=== PATIENT | female | born 1950 | race Caucasian/White ===

== ENCOUNTER → 2018-04-20 | Outpatient (CLI) | payer OTHER ==
[~2018-04-20] MED LIST: AMOX-559 PO; CETI5TAB22 PO; FA/M1TAB27 PO; FLUT16SP20 NS; HYDR-2966 PO; LISI20TA29 PO; NORE-5 PO; OLO2ODPT OP; [UNRECOGNIZED DRUG - CODE] PO
--- NOTE | 2018-04-21 11:48 | RADIOLOGY IMAGING REPORT ---
FACILITY: [facility] PATIENT NAME: LEN CAMPBELL : [id number] MR: [id number] V: [id number] EXAM DATE: [id number] ORDERING PHYSICIAN: NGUYEN AMBROSE TECHNOLOGIST: Kristine Brown PROCEDURE:BILATERAL DIGITAL SCREENING MAMMOGRAM WITH CAD ASSISTED INTERPRETATION & 3D TOMOSYNTHESIS COMPARISON:Prior mammograms 02/20/2015, 11/08/12. INDICATIONS:SCREENING FINDINGS: There is scattered fibroglandular tissue. No suspicious mass, microcalcification or architectural distortion. No change compared to priors. DIAGNOSTIC CATEGORY: 1-NEGATIVE. RECOMMENDATIONS: ROUTINE MAMMOGRAM AND CLINICAL EVALUATION. IMPRESSION: BIRADS 1: Negative. Normal exam. Dictated by: Brett Rodriguez on 04/21/2018 at 10:04 Transcribed by: SOBIA on 04/21/2018 at 10:11 Approved by: Brett Rodriguez on 04/21/2018 at 11:47 [facility]
== END ==
LOC: MAMO 01:44
PROVIDERS: ATTEND Family Medicine
DX: Z12.31 Encounter for screening mammogram for malignant neoplasm of breast (principal)
CPT/HCPCS: 77063; 77067

== ENCOUNTER → 2018-07-11 | Outpatient (CLI) | payer OTHER ==
--- NOTE | 2018-07-11 10:44 | EKG ---
FACILITY: [facility] [place] PATIENT NAME: LEN CAMPBELL : [id number] MR: [id number] V: [id number] EXAM DATE: ORDERING PHYSICIAN: NGUYEN AMBROSE TECHNOLOGIST: Test Reason : CHEST TIGHTNESS Blood Pressure : / mmHG Vent. Rate : 076 BPM Atrial Rate : 076 BPM P-R Int : 172 ms QRS Dur : 102 ms QT Int : 394 ms P-R-T Axes : 055 008 004 degrees QTc Int : 443 ms Normal sinus rhythm No ST-T abnormalities No previous ECGs available Confirmed by JUAN GORDON ([id number]) on 07/11/2018 6:05:44 PM Referred By: Confirmed By:JUAN GORDON
== END ==
LOC: LAB 10:11
PROVIDERS: ATTEND Family Medicine
DX: R07.89 Other chest pain (principal); R00.0 Tachycardia, unspecified; I10 Essential (primary) hypertension
CPT/HCPCS: 36415; 82310; 82374; 82435; 82565; 82947; 84132; 84295; 84443; 84520; 93005